=== PATIENT | male | born 1975 | race Caucasian/White ===

== ENCOUNTER 2016-11-29 08:46 | Emergency (ER) | payer SELFPAY ==
[~2016-11-29] VITALS: Ht 182.9 cm; Wt 104.3 kg
[2016-11-29 08:48] VITALS: BP 137/88; PULSE 82; RESP 26; TEMP 96.3; O2SAT 95
--- NOTE | 2016-11-29 08:55 | NUR ---
Pt to bed 8
--- NOTE | 2016-11-29 09:00 | NUR ---
ER at bedside examining patient.
[2016-11-29] MEDS ORDERED: NACL 0.9% 1,000 ML IV ONE (09:15)
[2016-11-29] MEDS ORDERED: DIPHENHYDRAMINE INJ 50 MG/ML VIAL IVP ONE ×2 (09:15→10:45)
[2016-11-29] MEDS ORDERED: MORPHINE 4 MG/ML INJ. SYRINGE IVP ONE (09:15)
[2016-11-29 09:29] LABS: BASOPHILS # (AUTO) 0.1 K/uL (0.0-0.2); BASOPHILS % (AUTO) 0.5 % (0.0-2.0); EOSINOPHILS # (AUTO) 0.1 K/uL (0.0-0.4); EOSINOPHILS % (AUTO) 0.6 % (0.0-4.0); HEMATOCRIT 48.4 % (36-54); HEMOGLOBIN 15.6 g/dL (14.0-18.0); LYMPHOCYTES % (AUTO) 15.4 % (20.5-51.5); MEAN CORPUSCULAR HEMOGLOBIN 28 pg (27-31); MEAN CORPUSCULAR HGB CONC 32 % (32-36); MEAN CORPUSCULAR VOLUME 87 fL (79.0-98.0); MONOCYTES % (AUTO) 7.5 % (1.7-9.3); NEUTROPHILS # (AUTO) 9.9 K/uL (1.8-7.7); PLATELET COUNT (AUTO) 481 K/uL (130-430); RED BLOOD CELL COUNT(AUTO) 5.57 MIL/uL (4.2-6.2); RED CELL DISTRIBUTION WIDTH 13.5 % (9.0-15.0); WHITE BLOOD COUNT (AUTO) 13.1 K/uL (4.8-10.8)
[2016-11-29 09:31] LABS: ANION GAP 8 (5-15); CALCIUM 9.6 mg/dL (8.4-11.0); CHLORIDE 102 mmol/L (98-107); CREATININE 1.23 mg/dL (0.55-1.30); GLUCOSE 107 mg/dL (70-99); POTASSIUM 3.4 mmol/L (3.5-5.1); SODIUM SERUM 139 mmol/L (136-145)
--- NOTE | 2016-11-29 09:31 | NUR ---
Medicated for pain per MD orders. IVF infusing to RAC with no s/s of infiltration at this time. VSS, placed on spO2 monitoring. Skin moist, cool
[2016-11-29 09:32] LABS: PROTHROMBIN TIME 10.4 SECS (9.5-12.5)
--- NOTE | 2016-11-29 09:33 | NUR ---
Phleb at bedside to draw blood cultures and lactic acid. 2 Pt identifiers used.
[2016-11-29 09:35] LABS: GFR AFRICAN AMERICAN 83 mL/min (>90)
[2016-11-29 09:36] LABS: ALANINE AMINOTRANSFERASE 28 U/L (12-78); ALBUMIN 4.2 g/dL (3.4-4.8); ASPARTATE AMINOTRANSFERASE 21 U/L (10-37); LIPASE 219 U/L (73-393); TOTAL BILIRUBIN 0.7 mg/dL (0.0-1.0); TOTAL PROTEIN, SERUM 8.5 g/dL (6.4-8.3)
[2016-11-29 09:38] LABS: ALCOHOL, BLOOD < 3 mg/dL (<10); UREA NITROGEN, BLOOD 7 mg/dL (8-21)
--- NOTE | 2016-11-29 09:53 | NUR ---
Pt still fidigety in bed, skin cool/dry. States that the pain medication "didn't do anything". Refused more pain medication. IV infusing with no s/s of infiltration. Son at bedside. Gave pt urinal for UA. States that he can't pee right now.
--- NOTE | 2016-11-29 10:13 | NUR ---
Pt back from radiology, unable to ly stil for CT. notified.
--- NOTE | 2016-11-29 10:43 | NUR ---
Medicated for pain per MD orders. Placed on athletic monitor, blood pressure machine and pulse oximeter. To gown for exam. Side rails up. Haylee and admin at bedside to address pt concerns
[2016-11-29] MEDS ORDERED: HALOPERIDOL LACTATE 5 MG/ML VIAL IVP ONE (10:45)
[2016-11-29] MEDS ORDERED: ENOXAPARIN SODIUM 40 MG/0.4 ML SYRINGE SUBCUT ONE (10:45)
--- NOTE | 2016-11-29 11:11 | NUR ---
Note chava in ED - 11/29/16 at 1123 by KARIN Patient will be admitted to care of [facility]. Admitted to unit. Will go to room . Belongings list completed. Summary report printed. Report given to .
--- NOTE | 2016-11-29 11:32 | NUR ---
Pt states that he is unable to urinate. Consent for in/out catheter given. # 14 FR In and Out catheter with use of sterile technique. Immediate return of 200 ml yellow clear urine noted. Urine sample collected and sent to lab. Pt tolerated procedure well. Patient unable to toilet self at this time.
[2016-11-29] MEDS ORDERED: MAGNESIUM CITRATE 300 ML ORAL SOLUTION PO ONE (12:00)
[2016-11-29 12:09] LABS: BILIRUBIN,URINE NEGATIVE (NEGATIVE); BLOOD, URINE NEGATIVE (NEGATIVE); CLARITY/URINE CLEAR (CLEAR); COLOR,URINE YELLOW (YELLOW); GLUCOSE,URINE NEGATIVE (NEGATIVE); KETONES,URINE 1+ (NEGATIVE); LEUKOCYTE ESTERASE ,URINE NEGATIVE (NEGATIVE); NITRITE, URINE NEGATIVE (NEGATIVE); PROTEIN URINE NEGATIVE (NEGATIVE); UROBILINOGEN,URINE 0.2 (0.2-1.0)
[2016-11-29 12:15] VITALS: BP 117/76; PULSE 65; RESP 20; TEMP 97.8; O2SAT 96
--- NOTE | 2016-11-29 12:15 | NUR ---
Patient given written and verbal discharge instructions and verbalizes understanding. ER MD discussed with patient the results and treatment provided. Patient in stable condition. ID arm band removed. IV catheter removed intact and dressing applied, no active bleeding. Patient educated on pain management and to follow up with PMD. Pain Scale 0/10. Opportunity for questions provided and answered.
[2016-11-29 12:26] LABS: OPIATE, URINE POSITIVE (NEG <=100); URINE AMPHETAMINE POSITIVE (NEG <=500)
[2016-11-29 12:27] LABS: BARBITURATE, URINE NEGATIVE (NEG <=200); BENZODIAZEPINE, URINE NEGATIVE (NEG <=150); CANNABINOID, URINE POSITIVE (NEG <=50); COCAINE, URINE NEGATIVE (NEG <=150); METHAMPHETAMINES SCREEN,URINE NEGATIVE (NEG <=500); PHENCYCLIDINE SCREEN,URINE NEGATIVE (NEG <=25); UR TRICYCLIC ANTIDEPRESSANTS NEGATIVE (NEG <=300); URINE METHADONE NEGATIVE (NEG <=200); URINE OXYCODONE SCREEN NEGATIVE (NEG <=100); URINE PROPOXYPHENE SCREEN NEGATIVE (NEG <=300)
[2016-11-30] MEDS ORDERED: ASPIRIN 81 MG TAB.CHEW PO ONE (09:00)
[2016-11-30] MEDS ORDERED: METOPROLOL TARTRATE 25 MG TABLET PO ONE (09:00)
[2016-11-30] MEDS ORDERED: ATORVASTATIN 20 MG TABLET PO SCH (09:00)
== END 2016-11-29 12:15 | disposition home or self-care (01) ==
LOC: SED 08:46
DX: K59.00 Constipation, unspecified (principal); R10.10 Upper abdominal pain, unspecified; F19.10 Other psychoactive substance abuse, uncomplicated
CPT/HCPCS: 36415; 74176; 80053; 80307; 81003; 83605; 83690; 85025; 85610; 87040; 93005; 96361; 96374; 96375; 96376; 99285; G0482; J1200; J1630; J2270; J7030

== ENCOUNTER 2021-01-28 20:30 | Emergency (ER) | payer OTHER ==
[~2021-01-28] VITALS: Ht 177.8 cm; Wt 104.3 kg
[2021-01-28 20:37] VITALS: BP_SYST 138
[2021-01-28] MEDS ORDERED: KETOROLAC TROMETHAMINE 60 MG/2 ML VIAL IM ONE (20:45)
[2021-01-28] MEDS ORDERED: MORPHINE 4 MG INJ. 4 MG/ML VIAL IM ONE (21:30)
[2021-01-28] MEDS ORDERED: NAPR-690 PO (22:26)
[2021-01-28 23:05] VITALS: BP_SYST 123
== END 2021-01-28 23:05 | disposition home or self-care (01) ==
LOC: SED 20:30
DX: G89.29 Other chronic pain (principal); M54.5 Low back pain
CPT/HCPCS: 72131; 76376; 96372; 99284; J1885; J2270